=== PATIENT | male | born 1960 ===

== ENCOUNTER 2022-05-26 16:50 | Emergency (ER) | payer OTHER ==
[2022-05-26 17:38] LABS: CARBON DIOXIDE,CO2 25.6 mmol/L (21.0-32.0); POTASSIUM,K 4.3 mmol/L (3.5-5.1)
== END 2022-05-26 18:36 | disposition home or self-care (01) ==
LOC: MW.ED 16:50
DX: M62.82 Rhabdomyolysis (principal); Z88.6 Allergy status to analgesic agent; Z88.8 Allergy status to other drugs, medicaments and biological substances
CPT/HCPCS: 36415; 80053; 81003; 82550; 82553; 85025; 93005; 93010; 99283; 99284